=== PATIENT | male | born 1985 | race Caucasian/White ===

== ENCOUNTER 2017-05-18 14:31 | Emergency (ER) | payer OTHER ==
[~2017-05-18] VITALS: Ht 177.8 cm; Wt 84.1 kg
[2017-05-18 14:32] VITALS: BP 124/78
[2017-05-18] MEDS ORDERED: ADDE30CA3 PO (14:39)
== END 2017-05-18 15:55 | disposition home or self-care (01) ==
LOC: M ED 14:31
DX: K52.9 Noninfective gastroenteritis and colitis, unspecified (principal); F90.9 Attention-deficit hyperactivity disorder, unspecified type; L40.9 Psoriasis, unspecified; Z79.899 Other long term (current) drug therapy; Z91.010 Allergy to peanuts; Z91.013 Allergy to seafood

== ENCOUNTER 2017-09-23 01:13 | Emergency (ER) | payer OTHER | END 2017-09-23 05:44 | disposition left against medical advice (07) | LOC: M ED 01:13 | DX: Z53.21 Procedure and treatment not carried out due to patient leaving prior to being seen by health care provider (principal) ==

== ENCOUNTER 2017-09-23 05:52 | Emergency (ER) | payer OTHER ==
[2017-09-23] MEDS: NORCO, ANEXSIA 5/325MG TABLET (HYDROcodone/ACETAMINOPHEN) PO (07:44)
[2017-09-23] MEDS: CLINDAMYCIN 150 MG CAP PO (07:44)
== END 2017-09-23 07:58 | disposition home or self-care (01) ==
LOC: M ED 05:52
DX: L03.211 Cellulitis of face (principal); F90.9 Attention-deficit hyperactivity disorder, unspecified type; F17.210 Nicotine dependence, cigarettes, uncomplicated; Z91.018 Allergy to other foods; Z91.013 Allergy to seafood; Z79.899 Other long term (current) drug therapy
CPT/HCPCS: 99283

== ENCOUNTER 2018-11-07 05:24 | Emergency (ER) | payer OTHER ==
[~2018-11-07 05:24] MED LIST: ADDE30CA3 PO; CLEO300C2 PO; ESCI20TA PO; GABA-843 PO; HYDR-3715 PO; TRAZ-160 PO
[2018-11-07] MEDS ORDERED: NICOTINE 21MG/24HR 1 EA TRANSDERMAL TD ONE (06:00)
[2018-11-07 06:18] LABS: HEMATOCRIT 43.7 % (42.0-52.0); HEMOGLOBIN 15.4 g/dl (13.5-17.5); MEAN CORPUSCULAR HEMOGLOBIN 29.8 pg (27.0-33.0); MEAN CORPUSCULAR HGB CONC 35.2 g/dl (32.0-36.5); MEAN CORPUSCULAR VOLUME 84.7 fl (80.0-96.0); PLATELET COUNT, AUTOMATED 302 10^3/uL (150-450); RED BLOOD COUNT 5.16 10^6/uL (4.30-6.10); WHITE BLOOD COUNT 12.5 10^3/uL (4.0-10.0)
[2018-11-07 06:56] LABS: AMPHETAMINES LEVEL URINE POSITIVE (NEGATIVE); BARBITURATES URINE NEGATIVE (NEGATIVE); BENZODIAZEPINES URINE NEGATIVE (NEGATIVE); CANNABINOIDS URINE NEGATIVE (NEGATIVE); COCAINE METABOLITE URINE NEGATIVE (NEGATIVE); METHADONE URINE NEGATIVE (NEGATIVE); OPIATES URINE NEGATIVE (NEGATIVE); PHENCYCLIDINE URINE NEGATIVE (NEGATIVE)
[2018-11-07 07:06] LABS: ACETAMINOPHEN LEVEL < 2.0 UG/ML (10.0-30.0); ALBUMIN 3.9 GM/DL (3.2-5.2); ALT/SGPT 36 U/L (12-78); BILIRUBIN,DIRECT 0.2 MG/DL (0.0-0.2); BILIRUBIN,TOTAL 0.8 MG/DL (0.2-1.0); BLOOD UREA NITROGEN 12 MG/DL (7-18); CALCIUM LEVEL 8.6 MG/DL (8.5-10.1); CARBON DIOXIDE LEVEL 29 MEQ/L (21-32); CHLORIDE LEVEL 103 MEQ/L (98-107); CREATININE FOR GFR 0.85 MG/DL (0.70-1.30); ETHYL ALCOHOL (ETHANOL) < 0.003 % (0.000-0.010); GLOMERULAR FILTRATION RATE > 60.0 (>60); GLUCOSE, FASTING 112 MG/DL (70-100); POTASSIUM SERUM 3.9 MEQ/L (3.5-5.1); SALICYLATE LEVEL < 1.7 MG/DL (5.0-30.0); SODIUM LEVEL 139 MEQ/L (136-145); TOTAL PROTEIN 7.5 GM/DL (6.4-8.2)
[2018-11-07 08:50] VITALS: BP 142/81
== END 2018-11-07 08:52 | disposition home or self-care (01) ==
LOC: M ED 05:24
DX: F19.10 Other psychoactive substance abuse, uncomplicated (principal); L40.9 Psoriasis, unspecified; F17.210 Nicotine dependence, cigarettes, uncomplicated; Z91.013 Allergy to seafood; Z91.018 Allergy to other foods
CPT/HCPCS: 36415; 80048; 80076; 80307; 84443; 85027; 99284; G0480

== ENCOUNTER 2019-03-02 10:31 | Emergency (ER) | payer OTHER ==
[~2019-03-02] VITALS: Ht 180.3 cm; Wt 86.4 kg
[~2019-03-02 10:31] MED LIST changes: -TRAZ-160 PO; +TRAZ-252 PO
[2019-03-02] MEDS ORDERED: QUET1TAB8 (10:39)
[2019-03-02] MEDS ORDERED: SERT-138 (10:39)
[2019-03-02] MEDS ORDERED: HYDR-4570 (10:39)
[2019-03-02] MEDS ORDERED: BUSP10TA (10:39)
[2019-03-02] MEDS ORDERED: PRAZ1CAP (10:39)
[2019-03-02] MEDS ORDERED: CLOBETASOL (10:39)
[2019-03-02] MEDS ORDERED: ISOVUE-370 76% 100ML VIAL (Q9967) As Ordered ONE (13:29)
[2019-03-02] MEDS ORDERED: NS 1,000 ML IV ONE (13:30)
[2019-03-02] MEDS ORDERED: CLINDAMYCIN 900 MG in IV 1 EA IV ONE (13:30)
[2019-03-02 13:49] LABS: BASO # 0.1 10^3/uL (0.0-0.2); BASO % 0.4 % (0.0-1.0); EOS # 0.1 10^3/uL (0.0-0.5); EOS % 0.7 % (0.0-3.0); HEMATOCRIT 40.7 % (42.0-52.0); HEMOGLOBIN 14.1 g/dl (13.5-17.5); LYMPH # 1.3 10^3/uL (1.5-5.0); LYMPH % 7.7 % (24.0-44.0); MEAN CORPUSCULAR HEMOGLOBIN 30.3 pg (27.0-33.0); MEAN CORPUSCULAR HGB CONC 34.6 g/dl (32.0-36.5); MEAN CORPUSCULAR VOLUME 87.5 fl (80.0-96.0); MONO # 1.6 10^3/uL (0.0-0.8); MONO % 9.7 % (0.0-5.0); NEUTROPHILS # 13.6 10^3/uL (1.5-8.5); NEUTROPHILS % 81.1 % (36.0-66.0); PLATELET COUNT, AUTOMATED 232 10^3/uL (150-450); RED BLOOD COUNT 4.65 10^6/uL (4.30-6.10); WHITE BLOOD COUNT 16.7 10^3/uL (4.0-10.0)
--- NOTE | 2019-03-02 14:20 | REP ---
CT of the soft tissue neck with contrast Indication: Multiple abscess/carbuncle. Comparison: None Technique: Axial CT of the neck was performed following the uneventful intravenous administration of 75 ml Isovue 370. Coronal and sagittal reformatted images were provided. Findings: There is motion artifact through the mandible and streak artifact related to dental amalgam which degrades image quality and decreases the sensitivity for the detection of small lesions about the oral cavity. Within this limitation, there are multiple submental lymph nodes, measuring up to 11 mm in short axis dimension. There is infiltration of the subcutaneous fat overlying the mandible bilaterally. There are bilateral cervical lymph nodes, not enlarged by CT size criteria. The parotid glands are poorly identified secondary to streak artifact from dental amalgam. A focal rim enhancing fluid collection is not identified. The thyroid gland and submandibular glands are within normal limits. The nasal cavity and nasopharynx and nasal portion of the oropharynx are unremarkable. The hypopharynx and larynx are normal. The esophagus is unremarkable. The orbital contents are intact. The imaged portion of the brain parenchyma is unremarkable. 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 The cervical vasculature is normal. The upper airway is patent. The lung apices are clear. No suspicious focal osseous lesion is identified. Impression: Motion artifact through the mandible and streak artifact related to dental amalgam which degrades image quality and decreases the sensitivity for the detection of small lesions about the oral cavity. Within this limitation, there are multiple submental lymph nodes, measuring up to 11 mm in short axis dimension. There is infiltration of the subcutaneous fat overlying the mandible which may represent cellulitis. No rim enhancing fluid collection to suggest abscess. Electronically Signed by Ingrid Sheht MD 03/02/2019 02:12 P
[2019-03-02] MEDS ORDERED: MUPI2OI TOP (14:54)
[2019-03-02] MEDS ORDERED: CLIN300C5 PO (14:54)
[2019-03-02 15:09] VITALS: BP 141/72
== END 2019-03-02 15:24 | disposition home or self-care (01) ==
LOC: EEVIPCON 10:31 → M ED 10:31
DX: L03.211 Cellulitis of face (principal); L73.9 Follicular disorder, unspecified; F17.200 Nicotine dependence, unspecified, uncomplicated; Z79.899 Other long term (current) drug therapy; Z91.013 Allergy to seafood; Z91.018 Allergy to other foods
CPT/HCPCS: 70491; 80047; 85025; 86140; 87070; 87077; 87186; 87205; 96361; 96365; 96366; 99284; Q9967

== ENCOUNTER 2019-04-11 11:58 | Emergency (ER) | payer OTHER ==
[~2019-04-11] VITALS: Ht 177.8 cm; Wt 80.9 kg
[~2019-04-11 11:58] MED LIST changes: +BUSP10TA; +CLIN300C5 PO; +CLOBETASOL; +HYDR-4570; +MUPI2OI TOP; +PRAZ1CAP PO; +QUET1TAB8 PO; +SERT-138
[2019-04-11] MEDS ORDERED: SUBO8MIS SL (12:37)
[2019-04-11] MEDS ORDERED: NICOTINE 21MG/24HR 1 EA TRANSDERMAL TD ONE (12:45)
[2019-04-11 13:01] LABS: HEMATOCRIT 39.6 % (42.0-52.0); HEMOGLOBIN 13.4 g/dl (13.5-17.5); MEAN CORPUSCULAR HGB CONC 33.8 g/dl (32.0-36.5); MEAN CORPUSCULAR VOLUME 85.7 fl (80.0-96.0); PLATELET COUNT, AUTOMATED 395 10^3/uL (150-450); RED BLOOD COUNT 4.62 10^6/uL (4.30-6.10); WHITE BLOOD COUNT 18.6 10^3/uL (4.0-10.0)
[2019-04-11 13:38] LABS: ACETAMINOPHEN LEVEL < 2.0 UG/ML (10.0-30.0); ALBUMIN 3.5 GM/DL (3.2-5.2); ALT/SGPT 25 U/L (12-78); BILIRUBIN,DIRECT 0.3 MG/DL (0.0-0.2); BILIRUBIN,TOTAL 1.4 MG/DL (0.2-1.0); BLOOD UREA NITROGEN 14 MG/DL (7-18); CALCIUM LEVEL 8.7 MG/DL (8.5-10.1); CARBON DIOXIDE LEVEL 28 MEQ/L (21-32); CHLORIDE LEVEL 100 MEQ/L (98-107); CREATININE FOR GFR 0.73 MG/DL (0.70-1.30); ETHYL ALCOHOL (ETHANOL) < 0.003 % (0.000-0.010); GLOMERULAR FILTRATION RATE > 60.0 (>60); GLUCOSE, FASTING 88 MG/DL (70-100); SALICYLATE LEVEL < 1.7 MG/DL (5.0-30.0); SODIUM LEVEL 133 MEQ/L (136-145); TOTAL PROTEIN 7.1 GM/DL (6.4-8.2)
[2019-04-11 16:08] LABS: AMPHETAMINES LEVEL URINE POSITIVE (NEGATIVE); BARBITURATES URINE NEGATIVE (NEGATIVE); BENZODIAZEPINES URINE NEGATIVE (NEGATIVE); CANNABINOIDS URINE NEGATIVE (NEGATIVE); COCAINE METABOLITE URINE NEGATIVE (NEGATIVE); METHADONE URINE NEGATIVE (NEGATIVE); OPIATES URINE POSITIVE (NEGATIVE); PHENCYCLIDINE URINE NEGATIVE (NEGATIVE)
[2019-04-11 19:37] VITALS: BP 112/68
== END 2019-04-11 19:43 | disposition short-term general hospital (02) ==
LOC: M ED 11:58
DX: F43.11 Post-traumatic stress disorder, acute (principal); F11.20 Opioid dependence, uncomplicated; F33.9 Major depressive disorder, recurrent, unspecified; F41.9 Anxiety disorder, unspecified; Z91.018 Allergy to other foods; Z91.013 Allergy to seafood; Z79.83 Long term (current) use of bisphosphonates; Z79.899 Other long term (current) drug therapy
CPT/HCPCS: 36415; 80048; 80076; 80307; 81001; 84443; 85027; 99284; G0480